=== PATIENT | female | born 1950 | race Caucasian/White ===

== ENCOUNTER → 2020-10-16 08:36 | Outpatient (BNVA) | payer MEDICARE, SELFPAY | PROVIDERS: Family Provider Internal Medicine; PCP Internal Medicine; Visit Provider Internal Medicine Rheumatology | DX: M05.79 Rheumatoid arthritis with rheumatoid factor of multiple sites without organ or systems involvement (principal); M19.90 Unspecified osteoarthritis, unspecified site; Z79.899 Other long term (current) drug therapy; Z11.59 Encounter for screening for other viral diseases; Z11.1 Encounter for screening for respiratory tuberculosis; E11.9 Type 2 diabetes mellitus without complications; Z79.4 Long term (current) use of insulin; M79.7 Fibromyalgia; M81.0 Age-related osteoporosis without current pathological fracture; Z71.89 Other specified counseling; F17.200 Nicotine dependence, unspecified, uncomplicated | CPT/HCPCS: 36415; 71046; 73130; 73630; 80076; 82306; 82565; 83036; 85025; 85651; 86140; 86480; 86704; 86803; 87340; 99204 ==

== ENCOUNTER 2020-10-16 11:00 | Outpatient (CLI) | payer MEDICARE, SELFPAY ==
--- NOTE | 2020-10-16 11:35 | XR_ITS ---
WS: [id number] Left foot, 3 views, 10/16/2020 Clinical Data: Z79.899 - Other prison (current) drug therapy Comparison: None. Findings: No fractures or dislocations are seen. No bone destruction or erosion is noted. The joint spaces and soft tissues are normal. No periarticular mineralization or calcifications are seen. XR/XR foot LT min 3V* [id number] Impression: Negative left foot.
--- NOTE | 2020-10-16 11:35 | XR_ITS ---
WS: [id number] Right foot, 3 views, 10/16/2020 Clinical Data: Z79.899 - Other [facility] (current) drug therapy Comparison: None. Findings: No fractures or dislocations are seen. No bone destruction or erosion is noted. The joint spaces and soft tissues are normal. No periarticular demineralization or calcifications are seen. XR/XR foot RT min 3V* [id number] Impression: Negative right foot.
--- NOTE | 2020-10-16 11:35 | XR_ITS ---
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 Findings: No nodules, masses or effusions are seen. The heart is normal. The pulmonary vascularity is not increased. No pneumonia or pneumothorax is seen. There is minimal right pleural reaction. The di aphragms are flattened. There are clips in the right upper quadrant from a cholecystectomy. There is vertebroplasty cement in the L1 vertebral body. XR/XR chest 2V* 61050 Impression: Hyperinflation.
--- NOTE | 2020-10-16 11:35 | XR_ITS ---
WS: [id number] Right hand, 3 views, 10/16/2020 Clinical Data: Z79.899 - Other senior care (current) drug therapy Comparison: None. Findings: No fractures or dislocations are seen. The soft tissues are unremarkable. The joint space s are normal No periarticular demineralization or calcifications are seen. XR/XR hand RT min 3V* [id number] Impression: Negative right hand.
--- NOTE | 2020-10-16 11:35 | XR_ITS ---
WS: [id number] Left hand, 3 views, 10/16/2020 Clinical Data: Z79.899 - Other nursing home (current) drug therapy Comparison: None. Findings: No fractures or dislocations are seen. The soft tissues are unremarkable. The joint spaces are normal No periarticular demineralization or calcifications are seen. XR/XR hand LT min 3V* [id number] Impression: Negative left hand.
[2020-10-16 11:44] LABS: Basophils # 0.1 10^3/uL (0.0-0.1); Basophils % 0.6 %; Eosinophils # 0.5 10^3/uL (0.0-0.8); Eosinophils % 3.9 %; Hematocrit 39.4 % (37.0-47.0); Hemoglobin 12.6 g/dL (11.5-15.3); Lymphocytes # 4.2 10^3/uL (0.8-4.8); Lymphocytes % 33.8 %; Mean Corpuscular Hemoglobin 29.7 pg (28.0-34.0); Mean Corpuscular Volume 92.9 fL (81-99); Mean Platelet Volume 10.2 fL (7.4-10.4); Monocytes # 0.6 10^3/uL (0.2-0.9); Monocytes % 5.1 %; Neutrophils # 6.91 10^3/uL (1.8-7.7); Neutrophils % 56.3 %; Nucleated Red Blood Cells % 0 %; Platelet Count 337 10^3/cmm (130-400); Red Blood Count 4.24 10^6/uL (4.1-5.3); Red Cell Distribution Width 13.1 % (12.1-15.1); White Blood Count 12.3 10^3/uL (4.0-10.0)
[2020-10-16 12:00] LABS: Estmated Average Glucose 229; Hemoglobin A1C 9.6 % (4.0-6.0)
[2020-10-16 12:06] LABS: Alanine Aminotransferase 14 U/L (0-33); Alkaline Phosphatase 114 IU/L (35-105); Aspartate Amino Transferase 17 U/L (0-32); C Reactive Protein 12.4 mg/L (0.0-4.9); Glomerular Filtration Rate 71.3 mL/min (90-130); Total Bilirubin 0.2 mg/dL (0.15-1.2)
[2020-10-16 12:22] LABS: 25 Hydroxy Vitamin D 18 ng/mL (30-100)
[2020-10-16 12:43] LABS: Erythrocyte Sedimentation Rate 31 mm/hr (0-15)
[2020-10-16 13:13] LABS: Hepatitis B Core AB, Total Reactive (Nonreactive); Hepatitis B Surface Antigen Non-Reactive (Nonreactive); Hepatitis C Virus Antibody Non-Reactive (Nonreactive)
[2020-10-17 15:27] LABS: Cyclic Citrullinated Peptide <16 UNITS
[2020-10-18 15:34] LABS: Quantiferon Mitogen 9.68 IU/mL; Quantiferon Nil 0.03 IU/mL; Quantiferon Plus TB2 <0.00 IU/mL; Quantiferon TB Gold NEGATIVE (NEGATIVE)
== END 2020-10-16 11:01 | disposition home or self-care (01) ==
LOC: RAD 11:11
PROVIDERS: PCP Internal Medicine; Visit Provider Internal Medicine Rheumatology
DX: M19.90 Unspecified osteoarthritis, unspecified site (principal); Z11.59 Encounter for screening for other viral diseases; Z79.899 Other long term (current) drug therapy; E11.9 Type 2 diabetes mellitus without complications; Z11.1 Encounter for screening for respiratory tuberculosis
CPT/HCPCS: 36415; 71046; 73130; 73630; 80076; 82306; 82565; 83036; 85025; 85651; 86140; 86480; 86704; 86803; 87340

== ENCOUNTER → 2020-11-06 09:26 | Outpatient (BNVA) | payer MEDICARE, SELFPAY | PROVIDERS: PCP Internal Medicine; Visit Provider Internal Medicine Rheumatology | DX: M19.90 Unspecified osteoarthritis, unspecified site (principal); Z79.899 Other long term (current) drug therapy; M05.79 Rheumatoid arthritis with rheumatoid factor of multiple sites without organ or systems involvement; Z71.89 Other specified counseling; M79.7 Fibromyalgia; M81.0 Age-related osteoporosis without current pathological fracture | CPT/HCPCS: 80076; 82565; 85025; 86140; 87517 ==

== ENCOUNTER → 2021-01-10 10:52 | Outpatient (BNVA) | payer MEDICARE, SELFPAY | PROVIDERS: PCP Internal Medicine; Visit Provider Family Medicine | DX: M25.551 Pain in right hip (principal); M16.11 Unilateral primary osteoarthritis, right hip; E11.9 Type 2 diabetes mellitus without complications | CPT/HCPCS: 73502; 80053; 80061; 83036; 84443; 85025 ==

== ENCOUNTER 2021-04-16 09:19 | Emergency (ER) | payer MEDICARE, SELFPAY ==
[2021-04-16 10:09] VITALS: BP 113/71; PULSE 76; RESP 16; TEMP 36.6; O2SAT 97; BMI 23.6
--- NOTE | 2021-04-16 10:28 | W.ED.GENADLT ---
Documented by User: KRIS Perez 04/16/21 13:31 HPI - General Adult General: Chief complaint: General Medical Stated complaint: left lower abd pain Time Seen by Provider: 04/16/21 10:16 History of Present Illness: HPI narrative: Patient complains about abdominal discomfort left lower quadrant since being placed on Farxiga. Patient states she has visit with her doctor and her doctor said she needed come to the ER today. Said she did not have any problems prior to medicine that she has had frequent urination now and that her stools are soft but they are smaller in volume and size Onset (ago): month(s) Location: abdomen Radiation: non-radiation Severity: mild Quality: aching Pain Consistency: intermittent Relieving factors: none Associated symptoms: Reports no associated symptoms; Deny chest pain, dyspnea, headache(s), nausea, rash or vomiting Review of Systems Const: Denies: fever(s), chills or body aches Eyes: Denies: change in vision or blurry vision ENMT: Denies: throat pain or nasal congestion Card: Denies: chest pain or dyspnea on exertion Resp: Denies: dyspnea, productive cough or non-productive cough GI: Reports: abdominal pain and change in stool character; Denies: nausea or vomiting : Reports: urinary frequency and urinary urgency Musc: Denies: extremity pain Skin/Breast: Denies: rash Neuro: Denies: headache(s) Psych: Denies: anxiety or depression Ezra/Lymph: Denies: easy bruising PFSH ED PFSH: Medical History Age related osteoporosis Diabetes Fibromyalgia Fibromyalgia High risk medication use Immunization counseling Joint pain Seropositive rheumatoid arthritis of multiple sites Surgical History History of ankle surgery History of cholecystectomy History of hysterectomy with bilateral oophorectomy Previous back surgery Family History Other CAD (coronary artery disease) Cancer Dementia Diabetes Hyperlipidemia Rheumatoid arthritis Denies family history of Lupus Psoriatic arthritis Chronic kidney disease (CKD) Hypertension Stroke Social History Alcohol intake: never Lives independently: Yes Housing: Apartment Marital status: / Current occupational status: retired History of recent travel: No Special yoshi needs: No Physical Exam Const: COMMON NORMALS: no acute distress and patient oriented x3 GENERAL APPEARANCE: cooperative HENMT: COMMON NORMALS: normocephalic, external ears normal, EAC's normal, TM's normal bilaterally and Normal external nose present HEAD & SCALP: normal to inspection and normocephalic FACE & SINUS: normal facial exam NOSE: Normal external nose present and No nasal discharge present EXTERNAL EAR: Yes external ears normal EXTERNAL AUDITORY CANAL: EAC's normal TYMPANIC MEMBRANE: TM's normal bilaterally MOUTH: Normal oral and palatal mucosa present THROAT: posterior oropharynx normal Eye: COMMON NORMALS: conjunctivae normal GENERAL EYE: appearance normal, both eyes and all related structures CONJUNCTIVA: Yes conjunctivae normal Neck/C-Spine: COMMON NORMALS: no JVD Lymph: LYMPHATIC: no lymphadenopathy noted Chest: COMMONS NORMALS: normal inspection of the chest Resp: COMMON NORMALS: normal respiratory effort, No retractions, No use of accessory muscles and clear to auscultation bilaterally AUSCULTATION: clear to auscultation bilaterally Cardio: COMMON NORMALS: no JVD, regular rate and regular rhythm RATE: regular rate RHYTHM: regular rhythm GI: INSPECTION: Yes normal to inspection AUSCULTATION: Yes normoactive bowel sounds PALPATION: Yes Tenderness to palpation present (GI) Details: LLQ Extremity: COMMON NORMALS: normal to inspection Neuro: COMMON NORMALS: patient oriented x3 Skin: COMMON NORMALS: no rashes or lesions noted GENERAL SKIN EXAM: no rashes or lesions noted Course Vital Signs: Vital signs: Vital Signs Temperature 97.9 F 04/16/21 10:09 Pulse Rate 78 04/16/21 13:43 Respiratory Rate 16 04/16/21 13:43 Blood Pressure 135/70 04/16/21 13:43 Pulse Oximetry 95 04/16/21 13:43 MDM - General Adult MDM Narrative: Medical decision making narrative: Patient is a pleasant patient has diabetes and had left lower quadrant pain since December since she was put on Farxiga. Laboratory studies are negative for any can concerning factors except that she does have some ketones and sugar in her urine. CT was positive for thickened stomach antrum possible mass, gastric ulcer possible neoplastic process going on radiology recommended endoscopy and colonoscopy for further evaluation. Patient also has some stenosis in her arteries. Shared results with patient and we will start her Nexium and get her appoint with general surgeon. Discussed case radiology results and labs with Dr. Anna. Lab Data: Labs: Lab Results 04/16/21 04/16/21 04/16/21 10:16 10:42 10:42 WBC 12.4 10^3/uL H 10 ^3/uL (4.0-10.0) RBC 4.23 10^6/uL 10^6 /uL (4.1-5.3) Hgb 12.0 g/dL g/dL (11.5-15.3) Hct 36.5 % L % (37.0-47.0) MCV 86.3 fl fl (81-99) MCH 28.4 pg pg (28.0-34.0) MCHC 32.9 g/dL g/dL (30.0-36.0) RDW 14.2 % % (12.1-15.1) Plt Count 425 10^3/cmm H 10 ^3/cmm (130-400) MPV 10.5 fL H fL (7.4-10.4) Neut % (Auto) 81.8 % % Lymph % (Auto) 11.7 % % [place] % (Auto) 3.6 % % Eos % (Auto) 1.9 % % Baso % (Auto) 0.7 % % Neut # (Auto) 10.10 10^3/uL H 1 0^3/uL (1.8-7.7) Lymph # (Auto) 1.5 10^3/uL 10^3/ uL (0.8-4.8) [place] # (Auto) 0.4 10^3/uL 10^3/ uL (0.2-0.9) Eos # (Auto) 0.2 10^3/uL 10^3/ uL (0.0-0.8) Baso # (Auto) 0.1 10^3/uL 10^3/ uL (0.0-0.1) Nucleated RBC % (a uto) 0 % % Nucleated RBCs # 0.0 /100WBC /100W BC Sodium 137 mmol/L mmol/L (136-145) Potassium 3.5 mmol/L mmol/L (3.5-5.1) Chloride 98 mmol/L mmol/L (98-107) Carbon Dioxide 24 mmol/L mmol/L (22-29) Anion Gap 18.5 (5-19) BUN 14 mg/dL mg/dL (8-23) Creatinine 0.7 mg/dL mg/dL (0.5-0.9) GFR Calculation 83.0 mL/min L mL/ min (90-130) Glucose 206 mg/dL H mg/dL (65-115) Calculated Osmolal ity 290 mOsm/kg mOsm/ kg (285-295) Calcium 8.8 mg/dL mg/dL (8.5-10.5) Total Bilirubin 0.2 mg/dL mg/dL (0.15-1.2) AST 10 U/L U/L (0-32) ALT 8 U/L U/L (0-33) Alkaline Phosphata se 129 IU/L H IU/L (35-105) Total Protein 7.0 g/dL g/dL (6.6-8.7) Albumin 4.1 g/dL g/dL (3.5-5.2) Globulin 2.9 g/dL g/dL (1.3-4.6) Lipase 15 U/L U/L (13-60) Urine Color Yellow (Yellow) Urine Appearance Clear (CLEAR) Urine pH 5 (5-7) Ur Specific Gravit y 1.020 (1.005-1.030) Urine Protein Neg (Negative) Urine Glucose (UA) 4+ H (Normal) Urine Ketones 2+ H (Negative) Urine Blood Neg (Negative) Urine Nitrate Negative (Negative) Urine Bilirubin Neg (Negative) Urine Urobilinogen Norm mg/dL mg/dL (Negative) Ur Leukocyte Melisa ase Negative (Negative) Discharge Plan Discharge Patient Disposition: Home Clinical Impression: Abdominal pain Qualifiers: Abdominal location: left lower quadrant Qualified Code(s): R10.32 - Left lower quadrant pain Condition: Stable Prescriptions: No Action loratadine 10 mg capsule 10 mg PO DAILY RF: 0 acetaminophen [Tylenol Extra Strength] 500 mg tablet 500 mg PO Q6H PRN (Reason: Pain) RF: 0 multivitamin Tablet 1 tab PO DAILY RF: 0 guaifenesin 600 mg tablet extended release 12hr 600 mg PO BID RF: 0 (DME) Lift chair See Rx Instructions .Route .MEDSUPPLY Qty: 1 RF: 0 (DME) blood-glucose meter Misc See Rx Instructions .Route Qty: 1 RF: 0 (DME) Blood Glucose Test Strip See Rx Instructions .Route Qty: 50 RF: 2 prednisone 10 mg tablet See Rx Instructions PO .COMPLEX RF: 0 leflunomide 20 mg tablet 20 mg PO DAILY RF: 0 Nexium 40 mg capsule,delayed release(DR/EC) 40 mg PO DAILY RF: 0 Novolin R Regular U-100 Insuln 100 unit/mL solution 15 unit SUBCUT TID RF: 0 aspirin 81 mg tablet,chewable 81 mg PO DAILY Qty: 90 RF: 0 atorvastatin 40 mg tablet 40 mg PO QPM Qty: 90 RF: 0 Lyrica 75 mg capsule 75 mg PO BID Qty: 0 RF: 0 Discharge Orders: Discharge ED (Routine); Ordered 04/16/21 Ordered By: Zeus Mendez Referrals: Nicolette Viera MD [Primary Care Provider] - Discharge Diet: Usual diet Discharge Activity: Increase activity as tolerated Patient Instructions: Abdominal Pain (ED) Activity Restrictions/Additional Instructions: Follow-up with medical provider as directed. Take medications as prescribed. Return to the ER or your medical provider if condition worsens. Please read and understand discharge instructions. If any questions ask please. You will be contacted by the hospital for an appointment with a general surgeon for evaluation. Coding Level of Care Code ED Type Photography Supervisor for Chg Fwd Exam Comprehensive Documented by User: Juan Antonio Anna DO 04/19/21 19:05 HPI - General Adult General: Chief complaint: General Medical Stated complaint: left lower abd pain Time Seen by Provider: 04/16/21 10:16 PFSH ED PFSH: Medical History Age related osteoporosis Diabetes Fibromyalgia Fibromyalgia High risk medication use Immunization counseling Joint pain Seropositive rheumatoid arthritis of multiple sites Surgical History History of ankle surgery History of cholecystectomy History of hysterectomy with bilateral oophorectomy Previous back surgery Family History Other CAD (coronary artery disease) Cancer Dementia Diabetes Hyperlipidemia Rheumatoid arthritis Denies family history of Lupus Psoriatic arthritis Chronic kidney disease (CKD) Hypertension Stroke Social History Alcohol intake: never Lives independently: Yes Housing: Apartment Marital status: / Current occupational status: retired History of recent travel: No Special yoshi needs: No Course Vital Signs: Vital signs: Vital Signs Temperature 97.9 F 04/16/21 10:09 Pulse Rate 78 04/16/21 13:43 Respiratory Rate 16 04/16/21 13:43 Blood Pressure 135/70 04/16/21 13:43 Pulse Oximetry 95 04/16/21 13:43 MDM - General Adult MDM Narrative: Medical decision making narrative: This patient was originally seen by KRIS Germain. I agree with his history, evaluation, and treatment. Lab Data: Labs: Lab Results 04/16/21 04/16/21 04/16/21 10:16 10:42 10:42 WBC 12.4 10^3/uL H 10 ^3/uL (4.0-10.0) RBC 4.23 10^6/uL 10^6 /uL (4.1-5.3) Hgb 12.0 g/dL g/dL (11.5-15.3) Hct 36.5 % L % (37.0-47.0) MCV 86.3 fl fl (81-99) MCH 28.4 pg pg (28.0-34.0) MCHC 32.9 g/dL g/dL (30.0-36.0) RDW 14.2 % % (12.1-15.1) Plt Count 425 10^3/cmm H 10 ^3/cmm (130-400) MPV 10.5 fL H fL (7.4-10.4) Neut % (Auto) 81.8 % % Lymph % (Auto) 11.7 % % [place] % (Auto) 3.6 % % Eos % (Auto) 1.9 % % Baso % (Auto) 0.7 % % Neut # (Auto) 10.10 10^3/uL H 1 0^3/uL (1.8-7.7) Lymph # (Auto) 1.5 10^3/uL 10^3/ uL (0.8-4.8) [place] # (Auto) 0.4 10^3/uL 10^3/ uL (0.2-0.9) Eos # (Auto) 0.2 10^3/uL 10^3/ uL (0.0-0.8) Baso # (Auto) 0.1 10^3/uL 10^3/ uL (0.0-0.1) Nucleated RBC % (a uto) 0 % % Nucleated RBCs # 0.0 /100WBC /100W BC Sodium 137 mmol/L mmol/L (136-145) Potassium 3.5 mmol/L mmol/L (3.5-5.1) Chloride 98 mmol/L mmol/L (98-107) Carbon Dioxide 24 mmol/L mmol/L (22-29) Anion Gap 18.5 (5-19) BUN 14 mg/dL mg/dL (8-23) Creatinine 0.7 mg/dL mg/dL (0.5-0.9) GFR Calculation 83.0 mL/min L mL/ min (90-130) Glucose 206 mg/dL H mg/dL (65-115) Calculated Osmolal ity 290 mOsm/kg mOsm/ kg (285-295) Calcium 8.8 mg/dL mg/dL (8.5-10.5) Total Bilirubin 0.2 mg/dL mg/dL (0.15-1.2) AST 10 U/L U/L (0-32) ALT 8 U/L U/L (0-33) Alkaline Phosphata se 129 IU/L H IU/L (35-105) Total Protein 7.0 g/dL g/dL (6.6-8.7) Albumin 4.1 g/dL g/dL (3.5-5.2) Globulin 2.9 g/dL g/dL (1.3-4.6) Lipase 15 U/L U/L (13-60) Urine Color Yellow (Yellow) Urine Appearance Clear (CLEAR) Urine pH 5 (5-7) Ur Specific Gravit y 1.020 (1.005-1.030) Urine Protein Neg (Negative) Urine Glucose (UA) 4+ H (Normal) Urine Ketones 2+ H (Negative) Urine Blood Neg (Negative) Urine Nitrate Negative (Negative) Urine Bilirubin Neg (Negative) Urine Urobilinogen Norm mg/dL mg/dL (Negative) Ur Leukocyte Melisa ase Negative (Negative) Discharge Plan Discharge Patient Disposition: Home Clinical Impression: Abdominal pain Qualifiers: Abdominal location: left lower quadrant Qualified Code(s): R10.32 - Left lower quadrant pain Condition: Stable Prescriptions: No Action loratadine 10 mg capsule 10 mg PO DAILY RF: 0 acetaminophen [Tylenol Extra Strength] 500 mg tablet 500 mg PO Q6H PRN (Reason: Pain) RF: 0 multivitamin Tablet 1 tab PO DAILY RF: 0 guaifenesin 600 mg tablet extended release 12hr 600 mg PO BID RF: 0 (DME) Lift chair See Rx Instructions .Route .MEDSUPPLY Qty: 1 RF: 0 (DME) blood-glucose meter Misc See Rx Instructions .Route Qty: 1 RF: 0 (DME) Blood Glucose Test Strip See Rx Instructions .Route Qty: 50 RF: 2 prednisone 10 mg tablet See Rx Instructions PO .COMPLEX RF: 0 leflunomide 20 mg tablet 20 mg PO DAILY RF: 0 Nexium 40 mg capsule,delayed release(DR/EC) 40 mg PO DAILY RF: 0 Novolin R Regular U-100 Insuln 100 unit/mL solution 15 unit SUBCUT TID RF: 0 aspirin 81 mg tablet,chewable 81 mg PO DAILY Qty: 90 RF: 0 atorvastatin 40 mg tablet 40 mg PO QPM Qty: 90 RF: 0 Lyrica 75 mg capsule 75 mg PO BID Qty: 0 RF: 0 Discharge Orders: Discharge ED (Routine); Ordered 04/16/21 Ordered By: Zeus Mendez Referrals: Nicolette Viera MD [Primary Care Provider] - Discharge Diet: Usual diet Discharge Activity: Increase activity as tolerated Patient Instructions: Abdominal Pain (ED) Activity Restrictions/Additional Instructions: Follow-up with medical provider as directed. Take medications as prescribed. Return to the ER or your medical provider if condition worsens. Please read and understand discharge instructions. If any questions ask please. You will be contacted by the hospital for an appointment with a general surgeon for evaluation. Coding Level of Care Code ED Type Photography Supervisor for Chg Fwd Exam Comprehensive
[2021-04-16 10:31] LABS: Add Urine Microscopic? NO; Charge for UA Resulting for Rev
[2021-04-16 10:37] LABS: Bilirubin Urine Neg (Negative); Blood Urine Neg (Negative); Glucose Urine UA 4+ (Normal); Ketones Urine 2+ (Negative); Leukocyte Esterase Urine Negative (Negative); Nitrate Urine Negative (Negative); Protein Urine Neg (Negative); Urine Appearance Clear (CLEAR); Urine Color Yellow (Yellow); Urobilinogen Urine Norm (Negative); pH Urine 5 (5-7)
[2021-04-16 10:47] LABS: Basophils # 0.1 10^3/uL (0.0-0.1); Basophils % 0.7 %; Eosinophils # 0.2 10^3/uL (0.0-0.8); Eosinophils % 1.9 %; Hematocrit 36.5 % (37.0-47.0); Lymphocytes # 1.5 10^3/uL (0.8-4.8); Lymphocytes % 11.7 %; Mean Corpuscular HGB Conc 32.9 g/dL (30.0-36.0); Mean Corpuscular Hemoglobin 28.4 pg (28.0-34.0); Mean Corpuscular Volume 86.3 fl (81-99); Mean Platelet Volume 10.5 fL (7.4-10.4); Monocytes # 0.4 10^3/uL (0.2-0.9); Monocytes % 3.6 %; Neutrophils % 81.8 %; Nucleated Red Blood Cells % 0 %; Platelet Count 425 10^3/cmm (130-400); Red Blood Count 4.23 10^6/uL (4.1-5.3); Red Cell Distribution Width 14.2 % (12.1-15.1); White Blood Count 12.4 10^3/uL (4.0-10.0)
--- NOTE | 2021-04-16 10:55 | CT_ITS ---
WS: [id number] CT ABDOMEN AND PELVIS WITH CONTRAST HISTORY: LLQ pain TECHNIQUE: Imaging performed of the abdomen and pelvis with IV contrast. Single phase imaging of the abdomen. Coronal and sagittal reformats are submitted. All CT scans at [facility] use at [address] one of these dose optimization techniques: automated exposure control; mA and/or kV adjustment per patient size (includes targeted exams where dose is matched to clinical indication); or iterative re construction. IV CONTRAST: Omnipaque 300; 95 mL IV. Oral contrast: No DLP: 1244.81 mGy.cm COMPARISON: None available. Lower thorax: Hyperexpanded lungs with chronic emphysema. Heart is normal size. No hiatal hernia. Liver/biliary system: Normal size with no intrahepatic dilatation. Gallbladder: Status post cholecystectomy. Pancreas: Normal size pancreas and pancreatic duct. No adjacent inflammation. Spleen: Normal size spleen with numerous granulomata. Adrenal glands: Normal. Right kidney: Normal. Left kidney: Normal size kidney. Cortical cyst measures 9 mm. No obstruction or hydronephrosis. Aorta: There is extensive calcification within the abdominal aorta. Calcified plaque and intimal thic kening throughout. There is at least a mild stenosis within the infrarenal aorta. Heavy calcification continues into the iliac arteries bilaterally. Suspect high-grade stenosis or obstruction of the pro ximal RIGHT common iliac artery. Lymphadenopathy: None. Free fluid: None. GI tract: Stomach is distended with fluid. Towards the antrum of the stomach there is moderate mucosa l thickening. There is a focal soft tissue nodule containing air and soft tissue containing air measu ring 2.7 x 1.6 cm extending into the wall of the stomach along the anterior antrum. There is a modera te amount of circumferential edema. Less edema extending into the duodenal C-loop. The appendix is no rmal. There is a additional very mild hyperemia and wall thickening involving the mid transverse colo n and at the splenic flexure. Numerous sigmoid diverticula without acute diverticulitis. Abdominal wall: Unremarkable abdominal wall. No hernia. Pelvis: No free fluid or adenopathy. Urinary bladder is negative. Bones: L2 prior kyphoplasty. Mild anterior wedging of L4 and L5. Age-indeterminate fractures of L4 an d L5. CT/CT abdomen pelvis w con* [id number] IMPRESSION: 1. Markedly thickened stomach antrum with a mixed density mass measuring 2.7 x 1.6 cm. Favor this is probably a gastric ulcer. Neoplastic necrotic mass shoul d also be considered. Upper endoscopy may be necessary to exclude underlying ne oplasm. 2. There are a few areas of mild submucosal thickening in the transverse and s plenic flexure along with sigmoid diverticulosis. Early neoplastic changes not excluded. Recommend colonoscopy for further evaluation. 3. No free fluid. 4. Marked atherosclerosis within the abdominal aorta. 5. Mild stenosis involving the distal abdominal aorta and probable occlusion o r high-grade stenosis involving the proximal RIGHT common iliac artery. 6. Age-indeterminate mild compression fractures at L4 and L5 and prior kyphopl asty at L2.
[2021-04-16 11:08] LABS: Alanine Aminotransferase 8 U/L (0-33); Albumin Level 4.1 g/dL (3.5-5.2); Alkaline Phosphatase 129 IU/L (35-105); Aspartate Amino Transferase 10 U/L (0-32); Blood Urea Nitrogen 14 mg/dL (8-23); Calcium 8.8 mg/dL (8.5-10.5); Carbon Dioxide 24 mmol/L (22-29); Chloride 98 mmol/L (98-107); Globulin 2.9 g/dL (1.3-4.6); Glucose 206 mg/dL (65-115); Lipase 15 U/L (13-60); Osmolality Calculated 290 mOsm/kg (285-295); Sodium 137 mmol/L (136-145); Total Bilirubin 0.2 mg/dL (0.15-1.2)
[2021-04-16 11:11] LABS: Anion Gap 18.5 (5-19); Potassium 3.5 mmol/L (3.5-5.1)
[2021-04-16] MEDS: sodium chloride 0.9% 1,000 ML 999 ML IV (11:23)
[2021-04-16 13:43] VITALS: BP 135/70; PULSE 78; RESP 16; O2SAT 95
--- NOTE | 2021-04-25 17:20 | DCPLANNER ---
Addendum entered by Susanna Obrien 05/24/21 11:17: Patient had a follow up appointment scheduled for 05.07.[address] Oneill at general surgery - patient did attend appointment. Addendum entered by Susanna Obrien 05/03/21 12:38: Patient has a follow up appointment scheduled for Friday, May 07, 2021 at 11:[address] Oneill at [facility] General Surgery. Clinic will call patient with appointment information. Original Note: global sales manager had message to schedule a follow up appointment for patient with general surgery. global sales manager emailed patients information to Becca Elliott and Angelica at [facility] General Surgery / ENT clinic. Patients information will be printed and reviewed. Clinic will call patient with appointment information.
== END 2021-04-16 13:44 | disposition home or self-care (01) ==
PROVIDERS: Emergency Provider Nurse Practitioner Family; PCP Family Medicine
DX: R10.32 Left lower quadrant pain (principal); Z79.82 Long term (current) use of aspirin; Z79.4 Long term (current) use of insulin; E11.9 Type 2 diabetes mellitus without complications
CPT/HCPCS: 74177; 80053; 81003; 83690; 85025; 96360; 99283; J7030; Q9967

== ENCOUNTER 2021-04-18 09:38 | Observation (INO) | payer MEDICARE, SELFPAY ==
[2021-04-18 09:42] VITALS: BP 151/57; PULSE 73; RESP 18; TEMP 36.5; O2SAT 96; BMI 25.7
--- NOTE | 2021-04-18 09:49 | CT_ITS ---
WS: [id number] CT HEAD NONCONTRAST HISTORY: altered mental status; confusion TECHNIQUE: Contiguous axial imaging performed through the brain in 2.5 mm imaging. Bone and soft tiss ue windows. Sagittal and coronal reformats reviewed. All CT scans at [facility] use at least one of these dose optimization techniques: automated exposure control; mA and/or kV adjustment per pa tient size (includes targeted exams where dose is matched to clinical indication); or iterative recon struction. DLP: 1020.35 mGy.cm COMPARISON: None available. No acute intracranial hemorrhage, midline shift or mass effect. Very mild atrophy and moderate chronic microvascular ischemic type changes in the white matter. Prior lacunar infarct in the LEFT gamez radiata. Ventricles: Lateral ventricles are mildly dilated. Temporal horns are prominent. Third ventricle and the fourth ventricle are also mildly prominent. Rim calcified mass in the region of the pineal gland. 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 This mass measures 10 x 8 mm. Paranasal sinuses: As visualized are clear. Mastoid air cells: Well pneumatized. Calvarium and scalp: Skull is intact with no soft tissue edema or swelling. CT/CT head wo con* [id number] IMPRESSION: 1. No acute intracranial hemorrhage or edema. 2. Mild ventriculomegaly. May be a communicating hydrocephalus as the third an d fourth ventricles are also mildly prominent as are the temporal horns. 3. Calcified mass in the region of the pineal gland. Probably represents a pin eal cyst. By imaging cannot exclude malignancy/pineocytoma. Recommend nonurgent follow-up MRI brain with and without contrast. Serial MRI documentation stabil ity will be necessary.
--- NOTE | 2021-04-18 09:49 | ECG_ITS ---
[facility] Test Date: 2021-04-18 Pat Name: Monica Marinelli Department: Room: Gender: Female Infection Prevention Specialist: : 1950 Requested By: Juan Zazueta Order Number: [id number] Wendy MD: Heidi Gerardo M.D. Measurements Intervals [place] Rate: 71 P: 114 [place]: 122 QRS: 109 QRSD: 130 T: 134 QT: 414 QTc: 450 Interpretive Statements SINUS RHYTHM ARM LEADS REVERSED [INVERTED P AND QRS IN I] INTERPRETATION BASED ON A DEFAULT AGE OF 40 YEARS No previous ECG available for comparison Electronically Signed On 04-19-2021 9:27:49 TINNING MACHINE SET UP OPERATOR by Heidi Gerardo M.D. [id number] f
--- NOTE | 2021-04-18 09:50 | XR_ITS ---
WS: [id number] Exam: XR pelvis 1-2V* [id number] Date/Time of Exam: 04/18/2021 9:57 AM Reason For Exam: fall; confusion No obvious pelvic fracture noted. The hips are intact as visualized. There is osteopenia. Monitoring leads superimpose the pelvis. Signs of vertebral plasty involving L2. XR/XR pelvis 1-2V* [id number] IMPRESSION: 1. No obvious pelvic fracture.
--- NOTE | 2021-04-18 09:50 | XR_ITS ---
WS: [id number] Exam: XR chest 1V portable [id number] Date/Time of Exam: 04/18/2021 9:57 AM Reason For Exam: altered mental status Comparison 10/16/2020. The lungs are clear and fully expanded. Heart size is normal for technique. The chest is somewhat rot ated. No pleural effusions. Bony elements are intact. Stable left apical pleural thickening. XR/XR chest 1V portable [id number] IMPRESSION: 1. No acute cardiopulmonary finding.
--- NOTE | 2021-04-18 09:53 | W.ED.AMS ---
HPI - Altered Mental Status General: Chief Complaint: Altered Mental Status Stated Complaint: AMS Time Seen by Provider: 04/18/21 09:40 Source: EMS Mode of arrival: EMS Limitations: altered mental status and other (confusion) History of Present Illness: HPI narrative: Last known well time was 8 PM yesterday. Patient reportedly had altered level consciousness and was found on her floor naked with room temperature approximately 60 degrees. Patient is confused and unable to give any history. She is oriented to self only. She does not know her date of . Patient denies any pain anywhere. Patient reportedly lives alone in apartment is normally alert and oriented x3. Reportedly her capillary blood sugar in route was normal. Her axillary temperature was 97.7 in route. According to her records she does have a history of diabetes mellitus and recent gastritis in which she was seen in the emergency room 2 days ago for. complaint: altered mental status and confusion Onset (ago): unknown Severity: moderate Consistency of symptoms: Constant Context: diabetes Treatments prior to arrival: other (none) Review of Systems General: Reports: ROS unobtainable due to mental status (pt is confused) Const: Reports: malaise ENMT: Denies: throat pain Card: Denies: chest pain Resp: Denies: dyspnea GI: Denies: abdominal pain Musc: Denies: neck pain or back pain Skin/Breast: Denies: rash Neuro: Denies: headache(s) All/Imm: Denies: urticaria PFSH ED PFSH: Medical History Age related osteoporosis Diabetes Fibromyalgia Fibromyalgia High risk medication use Immunization counseling Joint pain Seropositive rheumatoid arthritis of multiple sites Surgical History History of ankle surgery History of cholecystectomy History of hysterectomy with bilateral oophorectomy Previous back surgery Family History Other CAD (coronary artery disease) Cancer Dementia Diabetes Hyperlipidemia Rheumatoid arthritis Denies family history of Lupus Psoriatic arthritis Chronic kidney disease (CKD) Hypertension Stroke Social History Alcohol intake: never Lives independently: Yes Housing: Apartment Marital status: / Current occupational status: retired History of recent travel: No Special yoshi needs: No Physical Exam Const: COMMON NORMALS: alert and well nourished EXAM LIMITATIONS: altered mental status and other limitations (confused.) GENERAL APPEARANCE: anxious ORIENTATION/CONSCIOUSNESS: Yes oriented to person; not oriented to place and not oriented to time OTHER: Not cooperative. Patient feels cold. Speech is clear. Patient oriented to self only. Patient stated she was born in 1989 when asked her date of . HENMT: COMMON NORMALS: normocephalic and atraumatic (No evidence of trauma.) HEAD & SCALP: normocephalic and atraumatic (No evidence of trauma.) FACE & SINUS: normal facial exam Eye: COMMON NORMALS: EOMs intact bilaterally Neck/C-Spine: COMMON NORMALS: full ROM, no lymphadenopathy, supple, no meningeal signs and no JVD GENERAL: Yes normal visual inspection Lymph: LYMPHATIC: no lymphadenopathy noted Chest: COMMONS NORMALS: normal inspection of the chest and normal palpation of entire chest wall CHEST: No Ecchymosis present and No rash Resp: COMMON NORMALS: normal respiratory effort, No retractions and clear to auscultation bilaterally EFFORT & INSPECTION: No respiratory distress AUSCULTATION: clear to auscultation bilaterally Cardio: COMMON NORMALS: no JVD, regular rate, regular rhythm and Peripheral pulses 2+ throughout JUGULAR VENOUS DISTENTION: no JVD RATE: regular rate RHYTHM: regular rhythm PERIPHERAL PULSES: Peripheral pulses 2+ throughout GI: COMMON NORMALS: Normal to inspection, nondistended, normoactive bowel sounds present and non-tender : COMMON NORMALS: Yes no CVA tenderness BLADDER/KIDNEY EXAM: Yes no CVA tenderness Back/Pelvis: COMMON NORMALS: no CVA tenderness Extremity: COMMON NORMALS: normal to inspection, full ROM and capillary refill normal Neuro: COMMON NORMALS: CN's II-XII intact bilaterally, no focal motor deficits and no sensory deficits noted SENSORIUM/ORIENTATION: Yes alert, Yes oriented to person, No oriented to place, No oriented to time and Yes Orientation impaired MENINGEAL SIGNS: Yes no meningeal signs Psych: COMMON NORMALS: speech normal ATTITUDE: Yes uncooperative SPEECH: Yes normal speech JUDGEMENT: Poor judgement present (Psych) OTHER: Anxious Skin: COMMON NORMALS: no rashes or lesions noted and no wounds GENERAL SKIN EXAM: no rashes or lesions noted Course Vital Signs: Vital signs: Vital Signs Temperature 99.6 F 04/18/21 11:38 Pulse Rate 74 04/18/21 12:30 Respiratory Rate 29 H 04/18/21 11:15 Blood Pressure 146/65 04/18/21 12:30 Pulse Oximetry 93 04/18/21 12:30 MDM - Altered Mental Status MDM Narrative: Medical decision making narrative: 1112: I attempted straight cath for urinalysis. However, the catheter would not pass past approximately 2 cm. Therefore I discontinued the procedure. The nurse had attempted earlier and was unable to pass catheter. 1238: Nurse found that patient had been prescribed accidentally higher dose of tenacity and then originally ordered. Patient was taking 16 mg of tizanidine twice a day and still 4 mg twice a day. This certainly would cause a change in her level consciousness. 1230: rectal temp 99.6 wnl 1345: Discussed with hospitalist Dr. Valdivia. Asked that I obtain a bladder scan and then place Covarrubias catheter if possible. Will place in observation. Admit orders written. Lab Data: Attestation: I reviewed the patient's lab results. Labs: Lab Results 04/18/21 04/18/21 04/18/21 10:53 10:53 10:53 WBC 10.0 10^3/uL 10^3 /uL (4.0-10.0) RBC 3.78 10^6/uL L 10 ^6/uL (4.1-5.3) Hgb 10.4 g/dL L g/dL (11.5-15.3) Hct 34.1 % L % (37.0-47.0) MCV 90.2 fl fl (81-99) MCH 27.5 pg L pg (28.0-34.0) MCHC 30.5 g/dL g/dL (30.0-36.0) RDW 14.5 % % (12.1-15.1) Plt Count 345 10^3/cmm 10^3 /cmm (130-400) MPV 10.3 fL fL (7.4-10.4) Neut % (Auto) 74.0 % % Lymph % (Auto) 18.2 % % Catahoula % (Auto) 6.7 % % Eos % (Auto) 0.3 % % Baso % (Auto) 0.4 % % Neut # (Auto) 7.43 10^3/uL 10^3 /uL (1.8-7.7) Lymph # (Auto) 1.8 10^3/uL 10^3/ uL (0.8-4.8) [place]oula # (Auto) 0.7 10^3/uL 10^3/ uL (0.2-0.9) Eos # (Auto) 0.0 10^3/uL 10^3/ uL (0.0-0.8) Baso # (Auto) 0.0 10^3/uL 10^3/ uL (0.0-0.1) Nucleated RBC % (a uto) 0 % % Nucleated RBCs # 0.0 /100WBC /100W BC Sodium 137 mmol/L mmol/L (136-145) Potassium 3.6 mmol/L mmol/L (3.5-5.1) Chloride 99 mmol/L mmol/L (98-107) Carbon Dioxide 22 mmol/L mmol/L (22-29) Anion Gap 19.6 H (5-19) BUN 12 mg/dL mg/dL (8-23) Creatinine 0.5 mg/dL mg/dL (0.5-0.9) GFR Calculation 122.3 mL/min mL/m in (90-130) Glucose 177 mg/dL H mg/dL (65-115) Calculated Osmolal ity 288 mOsm/kg mOsm/ kg (285-295) Lactate Calcium 8.3 mg/dL L mg/dL (8.5-10.5) Total Bilirubin 0.3 mg/dL mg/dL (0.15-1.2) AST 22 U/L U/L (0-32) ALT 16 U/L U/L (0-33) Alkaline Phosphata se 130 IU/L H IU/L (35-105) Ammonia 24 umol/L umol/L (11-51) Troponin T Gen 5 n g/L Total Protein 6.4 g/dL L g/dL (6.6-8.7) Albumin 3.8 g/dL g/dL (3.5-5.2) Globulin 2.6 g/dL g/dL (1.3-4.6) Lipase 9 U/L L U/L (13-60) TSH 0.35 uIU/mL uIU/m L (0.27-4.20) Salicylates 0.7 mg/dL L mg/dL (3-10) Acetaminophen < 5.0 ug/mL L ug/ mL (10-30) Ethyl Alcohol < 10 mg/dL mg/dL (0-10) Coronavirus 229E ( PCR) Hep Bs Antigen Hepatitis C Antibo dy HIV 1&2 Ab & HIV 1 Ag HIV 1&2 Antibody SARS-CoV-2 (PCR) 04/18/21 04/18/21 04/18/21 10:53 10:53 10:53 WBC RBC Hgb Hct MCV MCH MCHC RDW Plt Count MPV Neut % (Auto) Lymph % (Auto) Cata[place]oula % (Auto) Eos % (Auto) Baso % (Auto) Neut # (Auto) Lymph # (Auto) Catahoula # (Auto) Eos # (Auto) Baso # (Auto) Nucleated RBC % (a uto) Nucleated RBCs # Sodium Potassium Chloride Carbon Dioxide Anion Gap BUN Creatinine GFR Calculation Glucose Calculated Osmolal ity Lactate 1.7 mmol/L mmol/L (0.5-2.2) Calcium Total Bilirubin AST ALT Alkaline Phosphata se Ammonia Troponin T Gen 5 n g/L 33 ng/L H ng/L (0-10) Total Protein Albumin Globulin Lipase TSH Salicylates Acetaminophen Ethyl Alcohol Coronavirus 229E ( PCR) Hep Bs Antigen Non-reactive (Nonreactive) Hepatitis C Antibo dy Non-reactive (Nonreactive) HIV 1&2 Ab & HIV 1 Ag HIV 1&2 Antibody SARS-CoV-2 (PCR) 04/18/21 04/18/21 10:53 11:26 WBC RBC Hgb Hct MCV MCH MCHC RDW Plt Count MPV Neut % (Auto) Lymph % (Auto) Cata[place]oula % (Auto) Eos % (Auto) Baso % (Auto) Neut # (Auto) Lymph # (Auto) Catahoula # (Auto) Eos # (Auto) Baso # (Auto) Nucleated RBC % (a uto) Nucleated RBCs # Sodium Potassium Chloride Carbon Dioxide Anion Gap BUN Creatinine GFR Calculation Glucose Calculated Osmolal ity Lactate Calcium Total Bilirubin AST ALT Alkaline Phosphata se Ammonia Troponin T Gen 5 n g/L Total Protein Albumin Globulin Lipase TSH Salicylates Acetaminophen Ethyl Alcohol Coronavirus 229E ( PCR) Not detected (NOT DETECT) Hep Bs Antigen Hepatitis C Antibo dy HIV 1&2 Ab & HIV 1 Ag Non-reactive (Non-Reactiv) HIV 1&2 Antibody Non-reactive (Non-Reactiv) SARS-CoV-2 (PCR) Not detected (NOT DETECT) Imaging Data^: CT Head: Radiologist's impression: CT HEAD NONCONTRAST HISTORY: altered mental status; confusion TECHNIQUE: Contiguous axial imaging performed through the brain in 2.5 mm imaging. Bone and soft tissue windows. Sagittal and coronal reformats reviewed. All CT scans at [facility] use at least one of these dose optimization techniques: automated exposure control; mA and/or kV adjustment per patient size (includes targeted exams where dose is matched to clinical indication); or iterative reconstruction. DLP: 1020.35 mGy.cm COMPARISON: None available. No acute intracranial hemorrhage, midline shift or mass effect. Very mild atrophy and moderate chronic microvascular ischemic type changes in the white matter. Prior lacunar infarct in the LEFT gamez radiata. Ventricles: Lateral ventricles are mildly dilated. Temporal horns are prominent. Third ventricle and the fourth ventricle are also mildly prominent. Rim calcified mass in the region of the pineal gland. 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 This mass measures 10 x 8 mm. Paranasal sinuses: As visualized are clear. Mastoid air cells: Well pneumatized. Calvarium and scalp: Skull is intact with no soft tissue edema or swelling. CT/CT head wo con* [id number] IMPRESSION: 1. No acute intracranial hemorrhage or edema. 2. Mild ventriculomegaly. May be a communicating hydrocephalus as the third and fourth ventricles are also mildly prominent as are the temporal horns. 3. Calcified mass in the region of the pineal gland. 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 By imaging cannot exclude malignancy/pineocytoma. Recommend nonurgent follow-up MRI brain with and without contrast. Serial MRI documentation stability will be necessary. Dictated By:Paola Curtis DOSigned By:Paola Curtis DOSigned Date/Time:04/18/21 1100 CXR: Radiologist's impression: Ordering Provider/Ordering MD: Juan Norton MD Date of Service: 04/18/21 Procedure(s): XR chest 1V portable [id number] Accession Number(s): [id number] Report Number: [id number] WS: [email or web address] Exam: XR chest 1V portable [id number] Date/Time of Exam: 04/18/2021 9:57 AM Reason For Exam: altered mental status Comparison 10/16/2020. The lungs are clear and fully expanded. Heart size is normal for technique. The chest is somewhat rotated. No pleural effusions. Bony elements are intact. Stable left apical pleural thickening. XR/XR chest 1V portable [id number] IMPRESSION: 1. No acute cardiopulmonary finding. Dictated By:Diasigned By:Mehdi Hernández Date/Time:04/18/21 1008 Xray Ortho: Radiologist's impression: Ordering Provider/Ordering MD: Juan Norton MD Date of Service: 04/18/21 Procedure(s): XR pelvis 1-2V* [id number] Accession Number(s): [id number] Report Number: [id number] WS: [email or web address] Exam: XR pelvis 1-2V* [id number] Date/Time of Exam: 04/18/2021 9:57 AM Reason For Exam: fall; confusion No obvious pelvic fracture noted. The hips are intact as visualized. There is osteopenia. Monitoring leads superimpose the pelvis. Signs of vertebral plasty involving L2. XR/XR pelvis 1-2V* [id number] IMPRESSION: 1. No obvious pelvic fracture. Dictated By:Diasigned By:Mehdi Hernández Date/Time:04/18/21 1006 EKG Data^: EKG 1: Attestation: I personally reviewed and interpreted this EKG as follows: EKG interpretation date: 04/18/21 EKG interpretation time: 11:03 Interpretation: Normal sinus rhythm with heart rate 71. Nonspecific ST-T changes. T wave flattening in V3 and V4. Lead II. Otherwise normal EKG. Normal axis. Normal FL interval, normal QRS interval normal QT interval. Discharge Plan Discharge Patient Disposition: Placed in Observation Clinical Impression: Communicating hydrocephalus, Hypothermia due to cold environment Altered mental status Qualifiers: Altered mental status type: disorientation Qualified Code(s): R41.0 - Disorientation, unspecified Accidental overdose Qualifiers: Encounter type: initial encounter Qualified Code(s): T50.901A - Poisoning by unspecified drugs, medicaments and biological substances, accidental (unintentional), initial encounter Coding Level of Care Code ED Senior Clerk for Sander Fwd Exam Comprehensive
--- NOTE | 2021-04-18 09:55 | PC.NURSE ---
report recieved from [facility]onda lopes assumed care.
--- NOTE | 2021-04-18 10:04 | PC.NURSE ---
pt taken out of soft wrist restraints.
--- NOTE | 2021-04-18 10:06 | PC.NURSE ---
requested sitter from [facility] [employer] fellow nurse verbalized understanding.
--- NOTE | 2021-04-18 10:10 | PC.NURSE ---
PT PROVIDED WITH BLANKETS FOR REWARMING.
[2021-04-18 10:17] LABS: ABG PCO2 37.2 mmHg (35-45); Alveolar-Arterial Oxygen Gradi 2.6 mmHg (5-10); Arterial Blood Gas Hematocrit 32.4 % (37-47); Base Excess ABG -1.4 mmol/L (-2.0-2.0); Blood Gas Allen Test Pos; Blood Gas Operator Identificat ED; Blood Gas Sample Site Radial, right; Blood Gas Sample Type Arterial; Carboxyhemoglobin 0.2 %THgb (0.4-20.1); HCO3 ABG 23.2 mmol/L (22-26); HGB O2 Sat 94.4 % (95-100); Ionized Calcium Level - ABG 1.2 mmol/L (1.1-1.4); Methemoglobin 1.3 % (0.4-1.5); Oxygen Device ROOM AIR; Oxygen Saturation ABG 95.9; Potassium Level - ABG 3.5 mmol/L (3.5-5.0); Total Hemoglobin 10.6 g/dL (12-16)
--- NOTE | 2021-04-18 10:41 | PC.NURSE ---
attempted to obtain blood and urine pt in ct.
[2021-04-18 11:05] LABS: Basophils % 0.4 %; Eosinophils % 0.3 %; Hematocrit 34.1 % (37.0-47.0); Hemoglobin 10.4 g/dL (11.5-15.3); Lymphocytes # 1.8 10^3/uL (0.8-4.8); Lymphocytes % 18.2 %; Mean Corpuscular HGB Conc 30.5 g/dL (30.0-36.0); Mean Corpuscular Hemoglobin 27.5 pg (28.0-34.0); Mean Corpuscular Volume 90.2 fl (81-99); Mean Platelet Volume 10.3 fL (7.4-10.4); Monocytes # 0.7 10^3/uL (0.2-0.9); Monocytes % 6.7 %; Neutrophils # 7.43 10^3/uL (1.8-7.7); Nucleated Red Blood Cells % 0 %; Platelet Count 345 10^3/cmm (130-400); Red Blood Count 3.78 10^6/uL (4.1-5.3); Red Cell Distribution Width 14.5 % (12.1-15.1)
--- NOTE | 2021-04-18 11:06 | PC.NURSE ---
PT PLACED ON CONTINUOUS SPO2, NIBP, AND CM.
--- NOTE | 2021-04-18 11:08 | PC.NURSE ---
PT PLACED ON BEAR WARMER AT 43 DEGREES C.
[2021-04-18 11:15] VITALS: BP 134/67; PULSE 72; RESP 29; O2SAT 94
--- NOTE | 2021-04-18 11:21 | PC.NURSE ---
ATTEMPTED TO PLACE IN AND OUT CATHETER PER DR. INES BETANCOURT WITH OUT SUCCESS WITH ASSISTANCE OF SHERYL Carpio RN. ATTEMPT MADE BY DR. MANLEY WITH ASSISTANCE BY MYSELF AND MARCIA RIVERS WITH OUT SUCCESS.
[2021-04-18 11:38] VITALS: TEMP 37.6
[2021-04-18 11:51] LABS: Lactate (Lactic Acid level) 1.7 mmol/L (0.5-2.2)
[2021-04-18 11:52] LABS: Ammonia 24 umol/L (11-51)
[2021-04-18 12:01] LABS: Alanine Aminotransferase 16 U/L (0-33); Albumin Level 3.8 g/dL (3.5-5.2); Alkaline Phosphatase 130 IU/L (35-105); Anion Gap 19.6 (5-19); Aspartate Amino Transferase 22 U/L (0-32); Blood Urea Nitrogen 12 mg/dL (8-23); Calcium 8.3 mg/dL (8.5-10.5); Carbon Dioxide 22 mmol/L (22-29); Chloride 99 mmol/L (98-107); Creatinine Clr Calc Pharmacy 62.9019; Globulin 2.6 g/dL (1.3-4.6); Glomerular Filtration Rate 122.3 mL/min (90-130); Glucose 177 mg/dL (65-115); Lipase 9 U/L (13-60); Osmolality Calculated 288 mOsm/kg (285-295); Potassium 3.6 mmol/L (3.5-5.1); Salicylate 0.7 mg/dL (3-10); Sodium 137 mmol/L (136-145); Thyroid Stimulating Hormone 0.35 uIU/mL (0.27-4.20); Total Bilirubin 0.3 mg/dL (0.15-1.2); Total Protein 6.4 g/dL (6.6-8.7)
[2021-04-18 12:07] LABS: Acetaminophen < 5.0 ug/mL (10-30); Alcohol Level < 10 mg/dL (0-10)
[2021-04-18 12:25] LABS: Troponin T (5th) Once 33 ng/L (0-10)
[2021-04-18 12:26] LABS: Hepatitis B Surface Antigen Non-Reactive (Nonreactive); Hepatitis C Virus Antibody Non-Reactive (Nonreactive)
[2021-04-18 12:30] VITALS: BP 146/65; PULSE 74; O2SAT 93
--- NOTE | 2021-04-18 13:08 | PC.PHAR ---
PT UNABLE TO VERIFY MEDICATIONS-MEDS ENTERED ARE WHAT EXT MED HISTORY SHOWS HAS BEEN FILLED RECENTLY-CALLED PTS CONTACT NUMBER HAD BEEN DISCONNECTED-[facility] FILLED TIZANIDINE 4MG -4 TABS (16MG) PO BID -RX WRITTEN FOR 4MG BID PRN -NOTES ARE MADE IN THE PHARMACY COMMENTS
[2021-04-18 13:13] LABS: Adenovirus Not Detected (NOT DETECT); Chlamydia Pneumoniae Not Detected (NOT DETECT); Coronavirus 229E,HKU1,NL63,OC4 Not Detected (NOT DETECT); Human Metapneumovirus Not Detected (NOT DETECT); Human Rhinovirus/Enterovirus Not Detected (NOT DETECT); Influenza A Not Detected (NOT DETECT); Influenza A H1 Not Detected (NOT DETECT); Influenza A H1-2009 Not Detected (NOT DETECT); Influenza A H3 Not Detected (NOT DETECT); Influenza B Not Detected (NOT DETECT); Mycoplasma Pneumoniae Not Detected (NOT DETECT); Parainfluenza Virus Type 1 Not Detected (NOT DETECT); Parainfluenza Virus Type 2 Not Detected (NOT DETECT); Parainfluenza Virus Type 3 Not Detected (NOT DETECT); Parainfluenza Virus Type 4 Not Detected (NOT DETECT); Respiratory Syncytial Virus A Not Detected (NOT DETECT); Respiratory Syncytial Virus B Not Detected (NOT DETECT); SARS-COV-2 Not Detected (NOT DETECT)
--- NOTE | 2021-04-18 13:20 | PC.NURSE ---
WHILE AT BEDSIDE PT IS IN NAD. PT IS AROUSED TO VERBAL STIMULI.
[2021-04-18 13:26] LABS: HIV 1 & 2 Antibody Non-Reactive (Non-Reactiv); HIV 1 & 2 Antigen Non-Reactive (Non-Reactiv)
[2021-04-18] MEDS: dextrose 5%-sod chloride 0.45% 1,000 ML 100 ML IV (14:12)
--- NOTE | 2021-04-18 14:20 | PC.NURSE ---
PT ATTEMPTING TO GET OUT OF BED AND PULL OUT IV AND OTHER MONITORING DEVICE. PT STATES, JUST LEAVE ME ALONE . PT OFFERED POSITION CHANGES, ADDITIONAL BLANKETS, OR ANY OTHER INTERVENTION THAT WOULD HELP HER REMAIN IN BED AND COOPERATIVE. PT DOES NOT ANSWER INFORMED DR. SINDHU BETANCOURT FOR WRIST RESTRAINTS AND 1 MG OF IM ATIVAN.
[2021-04-18] MEDS: LORazepam 2 mg/mL INJ 1 mL 1 MG IM (14:38)
--- NOTE | 2021-04-18 15:44 | PC.NURSE ---
inpatient hospitalist at bedside.
[2021-04-18 16:09] LABS: Ketone (Acetest) Serum Positive (Negative)
--- NOTE | 2021-04-18 16:25 | PC.NURSE ---
pt placed on bed ramirez per pt request.
--- NOTE | 2021-04-18 16:50 | PC.NURSE ---
pt assisted to bedside commode pt then goes back to bed and agrees to not attempt to stand or pull out iv.
[2021-04-18 17:35] LABS: Bilirubin Urine Neg (Negative); Blood Urine 2+ (Negative); Glucose Urine UA 4+ (Normal); Ketones Urine 3+ (Negative); Leukocyte Esterase Urine Negative (Negative); Nitrate Urine Negative (Negative); Protein Urine Neg (Negative); RBC Urine RARE /hpf (0-2); Squamous Epithelial Cell Urine RARE /hpf (0-5); Urine Appearance Clear (CLEAR); Urine Color Yellow (Yellow); Urobilinogen Urine Neg (Negative); pH Urine 5 (5-7)
[2021-04-18 17:36] LABS: Add Urine Culture? No
[2021-04-18 17:38] LABS: Amphetamines Screen Urine Negative (Negative); Barbiturates Screen Urine Negative (Negative); Benzodiazepines Screen Urine Positive (Negative); Cocaine Screen Urine Negative (Negative); Opiate Screen Urine Negative (Negative); PCP Screen Urine Negative (Negative); THC Screen Urine Negative (Negative)
--- NOTE | 2021-04-18 17:50 | PM.HP ---
Providers/Chief Complaint Primary Care Provider: Nicolette Viera MD Chief Complaint: AMS History of Present Illness Pleasant 71-year-old lady with diabetes, rheumatoid arthritis with chronic pain, fibromyalgia was in the ER on 04/16 at that time with abdominal discomfort, left lower quadrant, which she reported having ever since being placed on Farxiga was found dehydrated. Received IV hydration. Imaged with CT abdomen and pelvis which showed markedly thickened stomach antrum with mixed density mass measuring 2.7 x 1.6 cm favoring probable gastric ulcer, neoplastic necrotic mass consideration. With recommendation for additional assessment by endoscopy, as well as few areas of mild mucosal thickening in the transverse and splenic flexure of the colon with sigmoid diverticulosis, early neoplastic changes not excluded, with recommendation for colonoscopy. Marked atherosclerosis within abdominal aorta. Mild stenosis involving distal abdominal aorta and probable occlusion or high-grade stenosis involving proximal right common iliac artery. Age-indeterminate mild compression fractures L4 and 5, prior kyphoplasty L2. She was prescribed Nexium. Her sister was on the phone with her yesterday, and was noticing some word finding difficulty. Possibly some mild confusion, where certain questions or symptoms had to be repeated several times, although patient seemed to hide it, redirecting the conversation. She had taken Nexium for the first time, as well as it appears picked up Lyrica which she has not taken in a while and took that as well. She then could not be reached by phone, and today was found by her niece on the floor where she was for an unknown duration of time. Blood glucose on the way to ER was normal. Temperature on arrival 96.4, covered with blankets, while in ER improved. Reports feeling cold, feeling achy all over. Denies abdominal pain. Episodes of restlessness in ER, trying to climb out of bed, extremely anxious, given a dose of Ativan. Was calmer subsequently. 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 Recommended nonurgent follow-up with MRI brain with and without contrast. Serial MRI documentation of stability will be necessary. Chest x-ray without acute pulmonary finding. She was tested for coronavirus which was negative. HIV, hepatitis B antigen and C antibody negative. Urine initially could not be obtained, subsequently UA positive for ketones, serum ketones obtained also positive. ABG 7.4/37.2//20 3.2 anion gap 19.6. Review of Systems Const: Reports: body aches and malaise; Denies: fever(s) Eyes: Denies: change in vision or eye redness ENMT: Denies: throat pain, oral sores or ear or mastoid pain Card: Denies: chest pain, edema, pre-syncope or dyspnea on exertion Resp: Denies: dyspnea, productive cough, change in phlegm color or hemoptysis GI: Denies: abdominal pain, nausea, vomiting, diarrhea, constipation, hematochezia or melena : Denies: flank pain, urinary frequency or hematuria Musc: Denies: back pain, joint swelling or joint redness Skin/Breast: Denies: rash, sores or new lesions Neuro: Reports: headache(s), confusion and difficulty communicating thoughts; Denies: numbness in extremities, weakness in extremities, dizziness or seizure-like activity Endo: Denies: polyuria or polydipsia Ezra/Lymph: Denies: easy bleeding or purpura All/Imm: Denies: urticaria, throat swelling or tongue swelling Medications/Allergies Home Medications Medication Instructions Recorded Confirmed Last Taken Type diphenhydramine HCl 25 mg tablet 25 mg PO TID PRN 10/15/20 04/18/21 Unknown History guaifenesin 600 mg tablet, 600 mg PO BID 10/15/20 04/18/21 Unknown History extended release 12 hr acetaminophen 500 mg tablet 500 mg PO Q6H PRN 10/16/20 04/18/21 Unknown History loratadine 10 mg capsule 10 mg PO DAILY 10/16/20 04/18/21 Unknown History multivitamin 1 tab PO DAILY 10/16/20 04/18/21 Unknown History Lift chair #1 ea 01/29/21 04/18/21 Unknown Rx blood sugar diagnostic #50 ea 02/28/21 04/18/21 Unknown Rx blood-glucose meter #1 ea 02/28/21 04/18/21 Unknown Rx tizanidine 4 mg tablet 4 mg PO BID PRN #120 tab 03/08/21 04/18/21 Unknown Rx Celebrex 200 mg PO Q12H 04/18/21 04/18/21 Unknown History Lyrica 75 mg PO TID 04/18/21 04/18/21 Unknown History dapagliflozin [Farxiga] 5 mg PO DAILY 04/18/21 04/18/21 Unknown History esomeprazole magnesium [Nexium] 40 mg PO DAILY 04/18/21 04/18/21 Unknown History insulin regular human [Novolin R 15 unit SUBCUT TID 04/18/21 04/18/21 Unknown History Regular U-100 Insuln] leflunomide 20 mg PO DAILY 04/18/21 04/18/21 Unknown History prednisone See Rx Instructions PO .COMPLEX 04/18/21 04/18/21 Unknown History Allergies Allergy/AdvReac Type Severity Reaction Status Date / Time Anesthetics - Amide Type - Allergy Unknown Verified 02/27/21 14:38 Select A meperidine Allergy Unknown Verified 02/27/21 14:38 Methotrexate Analogues Allergy Unknown Verified 02/27/21 14:38 PFSH Acute PFSH: Medical History Age related osteoporosis Diabetes Fibromyalgia Fibromyalgia High risk medication use Immunization counseling Joint pain Seropositive rheumatoid arthritis of multiple sites Surgical History History of ankle surgery History of cholecystectomy History of hysterectomy with bilateral oophorectomy Previous back surgery Family History Other CAD (coronary artery disease) Cancer Dementia Diabetes Hyperlipidemia Rheumatoid arthritis Denies family history of Lupus Psoriatic arthritis Chronic kidney disease (CKD) Hypertension Stroke Social History Alcohol intake: never Lives independently: Yes Housing: Apartment Marital status: / Current occupational status: retired History of recent travel: No Special yoshi needs: No Vitals/I&O/Wt Last Vital Signs Temp 99.6 F 04/18/21 11:38 Pulse 74 04/18/21 12:30 Resp 29 H 04/18/21 11:15 BP 146/65 04/18/21 12:30 Pulse Ox 93 04/18/21 12:30 Weight last 48 hrs Weight 68.039 kg Physical Exam Narrative: EXAM NARRATIVE: Sister at bedside. Const: COMMON NORMALS: no acute distress and patient oriented x3 GENERAL APPEARANCE: cooperative (But need to repeat instructions, and not always following or understanding), ill appearing and frail appearing ORIENTATION/CONSCIOUSNESS: Yes awake and Yes confused HENMT: COMMON NORMALS: oropharynx normal Neck/C-Spine: COMMON NORMALS: no JVD Resp: COMMON NORMALS: normal respiratory effort and clear to auscultation bilaterally AUSCULTATION: clear to auscultation bilaterally Cardio: COMMON NORMALS: no JVD, regular rhythm, S1 normal heart sound present, S2 normal heart sound present and No murmurs present (Cardio) RHYTHM: regular rhythm HEART SOUNDS: S1 normal heart sound present and S2 normal heart sound present GI: COMMON NORMALS: Normal to inspection, nondistended, normoactive bowel sounds present, Soft to palpation and non-tender PALPATION: Yes Soft to palpation Extremity: COMMON NORMALS: no joint enlargement and no pedal edema Neuro: COMMON NORMALS: patient oriented x3 and moves all extremities MENINGEAL SIGNS: Yes no meningeal signs SPEECH: expressive aphasia GAIT: Yes Unable to assess gait SENSORY EXAM: Yes other (unable to assess, continues to repeat she is not sure) MOTOR EXAM: Other motor observations present (moving all extremities, 4/5) OTHER: Appears to track well wo gaze preference or visual field impairment. Skin: COMMON NORMALS: no rashes or lesions noted GENERAL SKIN EXAM: no rashes or lesions noted Data : 04/18/21 10:53 04/18/21 10:53 Micro: Microbiology 04/18/21 10:55 Blood Culture - Preliminary Blood SPECIMEN COLLECTED 04/18/21 10:53 Blood Culture - Preliminary Blood SPECIMEN COLLECTED A&P Assessment and plan (1) Ketoacidosis: Normoglycemic ketoacidosis likely due to dapagliflozin. Rehydration for dehydration, D5-0.45, potassium replacement. Insulin drip. Follow-up BMP. Status: Acute (2) Acute encephalopathy: Possibly metabolic encephalopathy secondary to ketoacidosis. As discussed with her and her sister, possible CVA given aphasia. IV fluid and treatment of ketoacidosis as above. Discussed with them also regarding high risk medications. Would hold tizanidine. It appears she had just restarted taking Lyrica after not taking it for about a month. Hold for now. Hold Benadryl. Will discontinue Celebrex. Would benefit from MRI assessment for possible CVA as well as to closer assess pineal gland calcified mass. May benefit from follow-up with neurology, LP for closer assessment of communicating hydrocephalus. Status: Acute (3) Fall on same level, unspecified, initial encounter: Found on the floor. Noted mild rhabdomyolysis. Initially hypothermia. Improved. Pelvic x-ray unremarkable. Status: Acute (4) High risk medication use: Would discontinue tizanidine. In the past also taking Valium, although she does not remember currently whether she is still taking it. Sister does not think she is taking prednisone chronically. Patient does not seem to remember doing so. Status: Acute (5) Aphasia: Status: Acute (6) Rhabdomyolysis: Mild. Follow-up CK. Status: Acute (7) Mass of pineal region: Incidentally noted on CT. Will need follow-up MRI with and without contrast, serial MRI to assess for stability. Status: Acute (8) Cerebral ventriculomegaly: As above, would benefit from follow-up with neurology, consideration of LP, consideration of NPH. Status: Acute Additional A&P Information RA Fibromyalgia Attestations Medical Necessity Statement*: Admission of over 2 midnights is going to be needed for assessment management of normoglycemic ketoacidosis, acute encephalopathy. Coding Level of Care Code Acute Retail Department Manager for [facility] Fw Diagnoses Ketoacidosis E87.2 Acute encephalopathy G93.40 Fall on same level, unspecified, initial encounter W18.30XA High risk medication use Z79.899 Aphasia R47.01 Rhabdomyolysis M62.82 Mass of pineal region G93.89 Cerebral ventriculomegaly G93.89
[2021-04-18 18:19] LABS: Creatine Phosphokinase 433 U/L (26-192)
[2021-04-18] MEDS: potassium chloride premix 100 ML 25 MEQ IV (19:07)
[2021-04-18] MEDS: pantoprazole 40 mg SDV IVP (19:07)
[2021-04-18] MEDS: aspirin 81 mg EC Tablet 162 MG PO (19:07)
[2021-04-18 19:09] VITALS: BP 120/44; PULSE 71; RESP 16; O2SAT 97
--- NOTE | 2021-04-18 19:15 | PC.NURSE ---
report given to kvng lopes assumed care.
[2021-04-18 20:48] LABS: Anion Gap 20.7 (5-19); Blood Urea Nitrogen 11 mg/dL (8-23); Calcium 8.1 mg/dL (8.5-10.5); Carbon Dioxide 19 mmol/L (22-29); Chloride 101 mmol/L (98-107); Creatinine Clr Calc Pharmacy 62.9019; Glomerular Filtration Rate 122.3 mL/min (90-130); Glucose 241 mg/dL (65-115); Osmolality Calculated 291 mOsm/kg (285-295); Potassium 3.7 mmol/L (3.5-5.1); Sodium 137 mmol/L (136-145)
[2021-04-18 23:02] LABS: Anion Gap 16.8 (5-19); Blood Urea Nitrogen 9 mg/dL (8-23); Calcium 7.9 mg/dL (8.5-10.5); Carbon Dioxide 22 mmol/L (22-29); Chloride 101 mmol/L (98-107); Creatinine Clr Calc Pharmacy 62.9019; Glomerular Filtration Rate 122.3 mL/min (90-130); Glucose 233 mg/dL (65-115); Osmolality Calculated 288 mOsm/kg (285-295); Potassium 3.8 mmol/L (3.5-5.1); Sodium 136 mmol/L (136-145)
[2021-04-18 23:41] VITALS: BP 140/62; PULSE 63; RESP 18; TEMP 36.7; O2SAT 92
[2021-04-19] MEDS: dextrose 5%-sod chloride 0.45% 1,000 ML 100 ML IV (01:31)
[2021-04-19 04:00] VITALS: BP 149/73; PULSE 65; RESP 18; TEMP 36.7; O2SAT 95
[2021-04-19 06:05] LABS: Basophils # 0.1 10^3/uL (0.0-0.1); Eosinophils # 0.3 10^3/uL (0.0-0.8); Eosinophils % 4.9 %; Hematocrit 32.7 % (37.0-47.0); Hemoglobin 10.3 g/dL (11.5-15.3); Lymphocytes # 2.7 10^3/uL (0.8-4.8); Lymphocytes % 40.2 %; Mean Corpuscular HGB Conc 31.5 g/dL (30.0-36.0); Mean Corpuscular Hemoglobin 27.8 pg (28.0-34.0); Mean Corpuscular Volume 88.1 fl (81-99); Mean Platelet Volume 11.2 fL (7.4-10.4); Monocytes # 0.6 10^3/uL (0.2-0.9); Monocytes % 9.5 %; Neutrophils # 2.98 10^3/uL (1.8-7.7); Neutrophils % 44.1 %; Nucleated Red Blood Cells % 0 %; Platelet Count 343 10^3/cmm (130-400); Red Blood Count 3.71 10^6/uL (4.1-5.3); Red Cell Distribution Width 14.1 % (12.1-15.1); White Blood Count 6.8 10^3/uL (4.0-10.0)
[2021-04-19 06:19] LABS: Alanine Aminotransferase 13 U/L (0-33); Albumin Level 3.4 g/dL (3.5-5.2); Alkaline Phosphatase 119 IU/L (35-105); Anion Gap 16.4 (5-19); Aspartate Amino Transferase 20 U/L (0-32); Blood Urea Nitrogen 8 mg/dL (8-23); Calcium 8.2 mg/dL (8.5-10.5); Carbon Dioxide 22 mmol/L (22-29); Chloride 103 mmol/L (98-107); Creatinine Clr Calc Pharmacy 62.9019; Globulin 2.5 g/dL (1.3-4.6); Glomerular Filtration Rate 122.3 mL/min (90-130); Glucose 183 mg/dL (65-115); Osmolality Calculated 289 mOsm/kg (285-295); Potassium 3.4 mmol/L (3.5-5.1); Sodium 138 mmol/L (136-145); Total Bilirubin 0.3 mg/dL (0.15-1.2); Total Protein 5.9 g/dL (6.6-8.7)
[2021-04-19 06:48] LABS: Glucose Point of Care 222 mg/dL (70-110)
[2021-04-19 08:00] VITALS: BP 145/86; PULSE 70; RESP 16; TEMP 36.4; O2SAT 95
[2021-04-19] MEDS: potassium chloride premix 100 ML 25 MEQ IV (11:34)
[2021-04-19] MEDS: aspirin 81 mg EC Tablet 162 MG PO (11:36)
[2021-04-19] MEDS: pantoprazole 40 mg SDV IVP (11:36)
[2021-04-19] MEDS: acetaminophen 325 mg Tablet 650 MG PO (11:54)
[2021-04-19 12:00] VITALS: BP 159/65; PULSE 75; RESP 18; TEMP 36.6; O2SAT 97
--- NOTE | 2021-04-19 14:57 | PC.CHAP ---
Pastoral Care Encounter/Spiritual Assessment Type of Contact [] Declined heavy forger helper visit [] Patient/Family/Request visit [] Outpatient visit [] Follow-up visit [] Physician referral [] Code/Alert [xx] Routine visit [] Staff referral [] Actively dying [] Patient sleeping [] Family support [] [] Out of room [] Palliative care [] [] Receiving care in room [] Pre-surgical visit [] Trauma [] Long length of stay [] ICU visit [] Other: Relational/Emotional Strength [xx] Patient feels connected with others/family/visitors/staff [] Distress [] Loneliness/isolation [] Abandonment Spirituality of Patient [xx] Person of Sandra [xx] Attends Judaism of their Sandra [xx] Believes in Prayer [xx] Reads Bible or Episcopal materials [] There are Spiritual issues to be addressed Display Maker Interventions [xx] Prayer [xx] Active listening [xx] Non-anxious presence [] Spiritual/emotional support [] Crisis/trauma care [] Spiritual counseling [] Bereavement support [] Provided bereavement packet [] Provided Bible/devotional materials [] Provided toy/stuffed animal, coloring book to patient or family member [] Provided Communion [] Anointing/[place] [] Salvation [xx] Completed spiritual assessment [] Other: Impact on Illness or Injury [] Angry [] Fearful [] Anxious [] Often cries [] Exhaustion [] Unable to work [] Unable to attend amish [xx] Unable to walk/stand [] Unable to read [xx] Unable to drive [] Unable to eat/drink [] Unable to sleep [] Unable to be with family [] Patient intubated [] Other: Summary Patient stated she is feeling better but her right arm feels irritated from the IV meds she has been receiving. She mentioned this to nurse. Her sister, Lexi, was present and we talked awhile. Lexi will be staying with patient a few days until patient's is discharged but Lexi lives in [place] about 4 hours or more away and will need to return home. Time spent with patient 5 minutes
[2021-04-19 16:58] LABS: Bacillus cereus group Not Detected (NOT DETECT); Bacillus subtillis group Not Detected (NOT DETECT); Corynebacterium Not Detected (NOT DETECT); Cutibacterium acnes (P.acnes) Not Detected (NOT DETECT); Enterococcus Not Detected (NOT DETECT); Enterococcus faecalis Not Detected (NOT DETECT); Enterococcus faecium Not Detected (NOT DETECT); Lactobacillus species Not Detected (NOT DETECT); Listeria Not Detected (NOT DETECT); Listeria monocytogenes Not Detected (NOT DETECT); Micrococcus Not Detected (NOT DETECT); Pan Candida Not Detected (NOT DETECT); Pan Gram-Negative Not Detected (NOT DETECT); Staphylococcus epidermidis Not Detected (NOT DETECT); Staphylococcus lugdunensis Not Detected (NOT DETECT); Staphylococcus species Not Detected (NOT DETECT); Streptococcus agalactiae Not Detected (NOT DETECT); Streptococcus anginosus group Not Detected (NOT DETECT); Streptococcus pneumoniae Not Detected (NOT DETECT); Streptococcus pyogenes Not Detected (NOT DETECT); Streptococcus species Not Detected (NOT DETECT)
--- NOTE | 2021-04-19 17:22 | PC.NURSE ---
DISCHARGE PACKET GONE OVER WITH PT AND HER SISTER PER PT CONSENT. ALL QUESTIONS ANSWERED. IV REMOVED. PT TOLERATED WELL. CATHETER TIP INTACT. PT SAFELY WHEELED OUT BY THIS NURSE.
[2021-04-19 17:23] VITALS: BP 159/65; PULSE 75; RESP 18; TEMP 36.6; O2SAT 97
--- NOTE | 2021-04-19 18:21 | USCV_ITS ---
Monica Marinelli Age: 71 Gender: F : 1950 Exam Date: 04/19/2021 06:45 Ordering Phys: Timmy Valdivia MD Technologist: KARSTEN Exam Location: [facility] [place] Indication: POSS CVA Risk Factors: Previous Vascular Surgery: Right Brachial BP: / Left Brachial BP: / Right Left Velocity (cm/s) Spectral Plaque Velocity (cm/s) Spectral Plaque Syst/Diast Broadening Syst/Diast Broadening 33.50/ 7.20 Prox CCA 80.30 / 6.00 48.00/ 11.80 Mid CCA 76.00 / 19.40 43.40/ 11.20 Distal CCA 78.60 / 18.80 127.50/34.20 Prox ICA 77.60 / 25.00 114.20/31.00 Mid ICA 60.70 / 23.10 82.50/ 14.30 Distal ICA 73.20 / 27.00 410.20 ECA 336.10 2.66 ICA/CCA 1.02 Antegrade Vertebral Antegrade 56.60/ 11.20 cm/s 50.10/ 18.20 cm/s Bi Subclavian Bi 115.7 168.8 0 0 FINDINGS Comparison: none available. Obstructive lesions noted in the extracranial carotid system. Mixture of calcified and noncalcified plaque in the bifurcations. Mild elevation of ICA velocity and turbulence. Significant ECA stenosis, bilateral. CONCLUSIONS Bilateral ICA stenosis less than 50%. Moderate plaque in the bifurcations. Bilateral ECA stenosis, greater than 50%. Dr. Paola Curtis DO (Electronically Signed) Final Date: 19 April 2021 08:07 S
--- NOTE | 2021-04-19 21:21 | P.DS_ITS ---
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 May be a communicating hydrocephalus as the third and fourth ventricles are also mildly prominent as are the temporal horns. Reason for Visit Reason for Visit: AMS Hospital Course Hospital Course Pleasant 71-year-old lady with diabetes, rheumatoid arthritis with chronic pain, fibromyalgia was in the ER on 04/16 at that time with abdominal discomfort, left lower quadrant, which she reported having ever since being placed on Farxiga was found dehydrated. Received IV hydration. Imaged with CT abdomen and pelvis which showed markedly thickened stomach antrum with mixed density mass measuring 2.7 x 1.6 cm favoring probable gastric ulcer, neoplastic necrotic mass consideration. With recommendation for additional assessment by endoscopy, as well as few areas of mild mucosal thickening in the transverse and splenic flexure of the colon with sigmoid diverticulosis, early neoplastic changes not e xcluded, with recommendation for colonoscopy. Marked atherosclerosis within abdominal aorta. Mild stenosis involving distal abdominal aorta and probable occlusion or high-grade stenosis involving proximal right common iliac artery. Age-indeterminate mild compression fractures L4 and 5, prior kyphoplasty L2. She was prescribed Nexium. Her sister was on the phone with her yesterday, and was noticing some word finding difficulty. Possibly some mild confusion, where certain questions or symptoms had to be repeated several times, although patient seemed to hide it, redirecting the conversation. She had taken Nexium for the first time, as well as it appears picked up Lyrica which she has not taken in a while and took that as well. She then could not be reached by phone, and today was found by her niece on the floor where she was for an unknown duration of time. Blood glucose on the way to ER was normal. Temperature on arrival 96.4, covered with blankets, while in ER improved. Reports feeling cold, feeling achy all over. Denies abdominal pain. Episodes of restlessness in ER, trying to climb out of bed, extremely anxious, given a dose of Ativan. Was calmer subsequently. 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 Recommended nonurgent follow-up with MRI brain with and without contrast. Serial MRI documentation of stability will be necessary. Chest x-ray without acute pulmonary finding. She was tested for coronavirus which was negative. HIV, hepatitis B antigen and C antibody negative. Urine initially could not be obtained, subsequently UA positive for ketones, serum ketones obtained also positive. ABG 7.4/37.2/86/20 3.2 anion gap 19.6. She received IV fluid for dehydration. Started on insulin drip due to normoglycemic ketoacidosis. Received electrolyte replacement for hypokalemia. This morning doing much better, with marked improvement in her mental status, with resolution of confusion, although still noted some deficits in short-term memory as per discussion with her sister. She otherwise is awake and alert, provides history of her medical condition. Regained her appetite, ate nearly all of her breakfast. Ambulating in the room. Reports feeling well and ready to return home. Her sister notes that she had had some decline in her memory recently progressing for a while, although it is not clear whether this will be new baseline discussed with her, likely with acute event hopefully still continuing to improve over the next days to weeks. Her sister will be staying with her after discharge to make sure she is continuing to recover, supervise her intake of medications. We discussed a number of high risk medications, including recommendations to discontinue tizanidine. Benadryl. She no longer takes Valium. Discussed to discontinue Celebrex due to increasing risk of cardiovascular events with this medication. Lyrica dose for now is decreased to 75 mg twice daily. She is also instructed to discontinue Farxiga to reduce risk of recurrence of normoglycemic DKA. As she reports variable blood glucose at home, is also referred to endocrinology for assistance in management of DKA. He was to follow-up with unemployment claims adjudicator in [place] and this past, but it is not convenient for her [facility] follow-up there. Additional assessment and Hospital included carotid Doppler study which showed less than 50% stenosis of carotids bilaterally. Due to diabetes, atherosclerosis, and peripheral artery disease she is started on statin. Aspirin. With memory decline, balance issues, and they report urinary incontinence as well, with noted incidental finding of hydrocephalus on CT, discussed with her and her sister, and she is given referral to neurology for follow-up for assessment for possible NPH, consideration of lumbar puncture. She is also referred for additional assessment by MRI brain with and without contrast to further assess pineal calcified mass, additionally assess for any possibility of small CVA given yesterday symptoms of aphasia. 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 Her right lower extremity is perfused, however, discussed to seek medical attention immediately in case of color change, loss of sensation or weakness or other symptoms suggestive of acute limb ischemia. He is additionally referred to surgery to set up assessment by endoscopy both upper and lower for areas of concern as noted on CT abdomen pelvis on 04/16 to e xclude malignancy with swelling noted in the stomach, as well as transverse colon and splenic flexure. With noted prior compression fractures, please also discuss with her treatment for osteoporosis. Physical Exam Narrative: EXAM NARRATIVE: Sitting up in chair. Accompanied in the room by her sister. Const: COMMON NORMALS: no acute distress and patient oriented x3 HENMT: COMMON NORMALS: oropharynx normal Neck/C-Spine: COMMON NORMALS: no JVD Resp: COMMON NORMALS: normal respiratory effort and clear to auscultation bilaterally AUSCULTATION: clear to auscultation bilaterally Cardio: COMMON NORMALS: no JVD, regular rhythm, S1 normal heart sound present, S2 normal heart sound present and No murmurs present (Cardio) RHYTHM: regular rhythm HEART SOUNDS: S1 normal heart sound present and S2 normal heart sound present GI: COMMON NORMALS: Normal to inspection, nondistended, normoactive bowel sounds present, Soft to palpation and non-tender PALPATION: Yes Soft to palpation Extremity: COMMON NORMALS: no joint enlargement and no pedal edema Neuro: COMMON NORMALS: patient oriented x3 and moves all extremities Skin: COMMON NORMALS: no rashes or lesions noted GENERAL SKIN EXAM: no rashes or lesions noted Discharge Data Data Completed and Pending: Completed Studies During Hospitalization Category Date Time Status CT head wo con* 7 [id number] Urgent Cat Scan 04/18/21 09:49 Completed XR chest 1V romi ble [id number] Urgent Exams 04/18/21 09:50 Completed XR pelvis 1-2V* 7 2170 Urgent Exams 04/18/21 09:50 Completed CV carotid duplex BI* [id number] Urgent Ultrasound 04/19/21 18:21 Completed Pending at discharge Category Date Time Status Blood Culture Sta t Lab 04/18/21 10:55 Results Creatine Phosphok inase Routine Lab 04/19/21 12:44 Ordered Labs from last 24 hours 04/19/21 04/19/21 04/19/21 06:11 04:41 04:41 WBC 6.8 RBC 3.71 L Hgb 10.3 L Hct 32.7 L MCV 88.1 MCH 27.8 L MCHC 31.5 RDW 14.1 Plt Count 343 MPV 11.2 H Neut % (Auto) 44.1 Lymph % (Auto) 40.2 [place] % (Auto) 9.5 Eos % (Auto) 4.9 Baso % (Auto) 1.0 Neut # (Auto) 2.98 Lymph # (Auto) 2.7 [place] # (Auto) 0.6 Eos # (Auto) 0.3 Baso # (Auto) 0.1 Nucleated RBC % (a uto) 0 Nucleated RBCs # 0.0 Sodium 138 Potassium 3.4 L Chloride 103 Carbon Dioxide 22 Anion Gap 16.4 BUN 8 Creatinine 0.5 GFR Calculation 122.3 Glucose 183 H POC Glucose 222 H Calculated Osmolal ity 289 Calcium 8.2 L Total Bilirubin 0.3 AST 20 ALT 13 Alkaline Phosphata se 119 H Total Protein 5.9 L Albumin 3.4 L Globulin 2.5 Bacillus cereus Gr p PCR Bacillus subtilis Grp PCR Parham-Leta (PCR) Corynebacterium (P CR) Cutibacterium acne s (PCR) Enterococcus sp PC R E. faecium (TEM-PC R) E. faecalis (TEM-P CR) Lactobacillus sp ( PCR) Listeria (PCR) List. monocytogene s PCR Micrococcus (PCR) Staphylococcus sp PCR Staph aureus (PCR) mecC-Methicil Res Gene MRSA (PCR) Staph epidermidis (PCR) Staph lugdunensis (TEM-PCR) Streptococcus sp P CR Strep agalactiae ( PCR) S. anginosus Grp P CR Strep pneumoniae ( PCR) S. pyogenes (PCR) Yva-Aekd-Xzyigfzq Bacteria (PCR) Vancomycin Res (Va nA)ELIZABETH Vancomycin Res (Va nB)ELIZABETH 04/18/21 04/18/21 22:31 11:26 WBC RBC Hgb Hct MCV MCH MCHC RDW Plt Count MPV Neut % (Auto) Lymph % (Auto) [place] % (Auto) Eos % (Auto) Baso % (Auto) Neut # (Auto) Lymph # (Auto) [place] # (Auto) Eos # (Auto) Baso # (Auto) Nucleated RBC % (a uto) Nucleated RBCs # Sodium 136 Potassium 3.8 Chloride 101 Carbon Dioxide 22 Anion Gap 16.8 BUN 9 Creatinine 0.5 GFR Calculation 122.3 Glucose 233 H POC Glucose Calculated Osmolal ity 288 Calcium 7.9 L Total Bilirubin AST ALT Alkaline Phosphata se Total Protein Albumin Globulin Bacillus cereus Gr p PCR Cancelled Bacillus subtilis Grp PCR Cancelled [place]-Leta (PCR) Cancelled Corynebacterium (P CR) Cancelled Cutibacterium acne s (PCR) Cancelled Enterococcus sp PC R Cancelled E. faecium (TEM-PC R) Cancelled E. faecalis (TEM-P CR) Cancelled Lactobacillus sp ( PCR) Cancelled Listeria (PCR) Cancelled List. monocytogene s PCR Cancelled Micrococcus (PCR) Cancelled Staphylococcus sp PCR Cancelled Staph aureus (PCR) Cancelled mecC-Methicil Res Gene Cancelled MRSA (PCR) Cancelled Staph epidermidis (PCR) Cancelled Staph lugdunensis (TEM-PCR) Cancelled Streptococcus sp P CR Cancelled Strep agalactiae ( PCR) Cancelled S. anginosus Grp P CR Cancelled Strep pneumoniae ( PCR) Cancelled S. pyogenes (PCR) Cancelled Hjm-Chyk-Agwwxzvk Bacteria (PCR) Cancelled Vancomycin Res (Va nA)ELIZABETH Cancelled Vancomycin Res (Va nB)ELIZABETH Cancelled Vitals: Last Vital Signs Temp 97.8 F 04/19/21 17:23 Pulse 75 04/19/21 17:23 Resp 18 04/19/21 17:23 BP 159/65 04/19/21 17:23 Pulse Ox 97 04/19/21 17:23 Discharge Plan Discharge Patient Disposition: Home Condition: Stable Prescriptions: New aspirin 81 mg tablet,chewable 81 mg PO DAILY Qty: 90 RF: 0 atorvastatin 40 mg tablet 40 mg PO QPM Qty: 90 RF: 0 Continued loratadine 10 mg capsule 10 mg PO DAILY RF: 0 acetaminophen [Tylenol Extra Strength] 500 mg tablet 500 mg PO Q6H PRN (Reason: Pain) RF: 0 multivitamin Tablet 1 tab PO DAILY RF: 0 guaifenesin 600 mg tablet extended release 12hr 600 mg PO BID RF: 0 prednisone 10 mg tablet See Rx Instructions PO .COMPLEX RF: 0 leflunomide 20 mg tablet 20 mg PO DAILY RF: 0 Nexium 40 mg capsule,delayed release(DR/EC) 40 mg PO DAILY RF: 0 Novolin R Regular U-100 Insuln 100 unit/mL solution 15 unit SUBCUT TID RF: 0 Changed Lyrica 75 mg capsule 75 mg PO BID Qty: 0 RF: 0 Discontinued diphenhydramine HCl [Benadryl Allergy] 25 mg tablet 25 mg PO TID PRN (Reason: ENTERED ON PREVIOUS ENTERED MED LIST) RF: 0 tizanidine 4 mg tablet 4 mg PO BID PRN (Reason: muscle spasticity) Qty: 120 RF: 1 celecoxib [Celebrex] 200 mg capsule 200 mg PO Q12H RF: 0 Farxiga 5 mg tablet 5 mg PO DAILY RF: 0 No Action (DME) Lift chair See Rx Instructions .Route .MEDSUPPLY Qty: 1 RF: 0 (DME) blood-glucose meter Misc See Rx Instructions .Route Qty: 1 RF: 0 (DME) Blood Glucose Test Strip See Rx Instructions .Route Qty: 50 RF: 2 Discharge Orders: Discharge Order (Routine); Ordered 04/19/21 Ordered By: Timmy Valdivia Other Ambulatory Orders: [place] [id number] (Routine) Timeframe: 1 Week Facility: [facility] - Location: Radiology Ordered By: Timmy Valdivia MR head wo/w con [id number] (Routine) Timeframe: 1 Week Facility: [facility] - Location: Radiology [facility] Ordered By: Timmy Valdivia Referrals: Berta León MD [Physician] - 05/15/21 10:00 am (NPH?) Jarek Oneill MD [Physician] - 05/03/21 8:30 am (EGD, colonoscopy) Gita Willis MD [Physician] - 04/29/21 10:15 am Nicolette Viera MD [Primary Care Provider] - 05/01/21 3:40 pm Discharge Diet: Diabetic and Low Cholesterol Discharge Activity: Increase activity as tolerated Patient Instructions: Aspirin (By mouth), Atorvastatin (By mouth) (Lipitor), Diabetic Ketoacidosis (GEN) Activity Restrictions/Additional Instructions: Please continue to check glucose 3 times daily and as needed. Target glucose 100-150. Please follow-up with endocrinology. Please discontinue dapagliflozin in case may contribute to ketoacidosis recurrence. Please follow-up with MRI brain for closer assessment of pineal mass incidentally noted on CT of the head. As well as to assess if prior stroke may be present. Due to noted hydrocephalus you are also referred for additional assessment by neurology to assess for possible normal pressure hydrocephalus. Please follow-up with general surgery to set up EGD and colonoscopy for closer assessment of areas of concern with thickened stomach with concern for possible mass, as well as thickened areas in the colon, to closely assess and exclude malignancy. Please follow-up with peripheral arterial ultrasound due to noted possible peripheral renal disease on CT scan, with possible occlusion of right common iliac artery. Please note due to risk of cardiovascular disease with diabetes and peripheral artery disease you are started on atorvastatin. Please discontinue Celebrex due to this medication raising cardiovascular risk, risk of heart attack or stroke. Please avoid tizanidine. Please do not take Valium anymore. Please decrease Lyrica dose for now to 75 mg twice a day. Avoid Benadryl. Avoid medications which may contribute to confusion. Follow-up with your primary doctor regarding osteoporosis with noted prior compression fractures on CT scan, discussed consideration of medication to treat osteoporosis. In case you are feeling unwell with any changes in mental status, confusion, nausea vomiting, generalized weakness, or other concerning symptoms, please seek medical evaluation. Discharge Attestations Time Spent in Discharge Care*: greater than 30 min Quality Metrics Clinical Quality Measures During this hospital stay, did patient experience: None Coding Level of Care Code Acute Chg FW DC note Diagnoses Ketoacidosis E87.2 Acute encephalopathy G93.40 Fall on same level, unspecified, initial encounter W18.30XA High risk medication use Z79.899 Aphasia R47.01 Rhabdomyolysis M62.82 Mass of pineal region G93.89 Cerebral ventriculomegaly G93.89
[2021-04-19 23:04] LABS: Glucose Point of Care 365 mg/dL (70-110)
== END 2021-04-19 17:00 | disposition home or self-care (01) ==
LOC: ER 18:57 → ER IP 19:36 → MEDSURG 21:31
PROVIDERS: Admitting Provider Internal Medicine; Emergency Provider Family Medicine; PCP Family Medicine; Visit Provider Internal Medicine
DX: E11.10 Type 2 diabetes mellitus with ketoacidosis without coma (principal); G93.40 Encephalopathy, unspecified; Z91.81 History of falling; Z79.899 Other long term (current) drug therapy; R47.01 Aphasia; M62.82 Rhabdomyolysis; G93.89 Other specified disorders of brain; E11.9 Type 2 diabetes mellitus without complications; M06.9 Rheumatoid arthritis, unspecified; G89.29 Other chronic pain; M79.7 Fibromyalgia; I65.23 Occlusion and stenosis of bilateral carotid arteries; M81.0 Age-related osteoporosis without current pathological fracture; Z82.49 Family history of ischemic heart disease and other diseases of the circulatory system
CPT/HCPCS: 36415; 36416; 36600; 70450; 71045; 72170; 80048; 80051; 80053; 80306; 80307; 81001; 82009; 82140; 82330; 82550; 82805; 82962; 83605; 83690; 84443; 84484; 85025; 86803; 87040; 87150; 87205; 87340; 87635; 87806; 93005; 93880; 96365; 96366; 96372; 96375; 99285; C9113; G0378; J2060; J3480; J7799

== ENCOUNTER → 2021-09-04 13:55 | Outpatient (BNVA) | payer MEDICARE, SELFPAY | PROVIDERS: PCP Family Medicine; Visit Provider Nurse Practitioner Family | DX: Z78.0 Asymptomatic menopausal state (principal); E11.9 Type 2 diabetes mellitus without complications; M79.7 Fibromyalgia; M81.0 Age-related osteoporosis without current pathological fracture; M05.79 Rheumatoid arthritis with rheumatoid factor of multiple sites without organ or systems involvement; E78.00 Pure hypercholesterolemia, unspecified; M19.90 Unspecified osteoarthritis, unspecified site; Z53.20 Procedure and treatment not carried out because of patient's decision for unspecified reasons | CPT/HCPCS: 80053; 80061; 82306; 83036 ==

== ENCOUNTER → 2022-02-12 12:15 | Outpatient (BNVA) | payer MEDICARE, SELFPAY | PROVIDERS: PCP Family Medicine; Visit Provider Nurse Practitioner Family | DX: M79.7 Fibromyalgia (principal); Z79.899 Other long term (current) drug therapy; E55.9 Vitamin D deficiency, unspecified; E78.00 Pure hypercholesterolemia, unspecified; E11.9 Type 2 diabetes mellitus without complications | CPT/HCPCS: 80053; 80061; 82306; 84443 ==

== ENCOUNTER → 2022-10-30 09:23 | Outpatient (BNVA) | payer MEDICARE, SELFPAY | PROVIDERS: PCP Family Medicine; Visit Provider Nurse Practitioner Family | DX: E55.9 Vitamin D deficiency, unspecified (principal); E78.00 Pure hypercholesterolemia, unspecified; I73.9 Peripheral vascular disease, unspecified; E11.9 Type 2 diabetes mellitus without complications; M79.7 Fibromyalgia; J30.2 Other seasonal allergic rhinitis; K21.9 Gastro-esophageal reflux disease without esophagitis; M81.0 Age-related osteoporosis without current pathological fracture | CPT/HCPCS: 80053; 80061; 82306; 83036 ==